=== PATIENT | female | born 1980 | race Caucasian/White ===

== ENCOUNTER 2019-03-13 13:25 | Inpatient (IN) | payer MEDICAID ==
[2019-03-13] MEDS ORDERED: LACTATED RINGER'S 1,000 ML IV (19:44)
[2019-03-13] MEDS ORDERED: CARBOPROST 250 MCG INJ IM (20:00)
[2019-03-13] MEDS ORDERED: OXYTOCIN 30 UNITS/LR 500 ML IV (20:00)
[2019-03-13] MEDS ORDERED: METHYLERGONOVINE 0.2 MG INJ IM (20:00)
[2019-03-13] MEDS ORDERED: MISOPROSTOL 200 MCG TAB PR (20:00)
[2019-03-13 20:29] LABS: ADD MAN DIFF? NO
[2019-03-13 20:34] LABS: WHITE BLOOD COUNT 8.7 10^3/ul (4.8-10.8)
[2019-03-13 20:34] LABS: BASOPHIL # 0.1 10^3/ul (0.0-0.1); BASOPHILS % 0.6 % (0.0-2.0); EOSINOPHILS # 0.1 10^3/ul (0.0-0.5); EOSINOPHILS % 1.1 % (0.0-7.0); HEMATOCRIT 32.2 % (37.0-47.0); HEMOGLOBIN 10.3 g/dl (12.0-16.0); LYMPHOCYTES # 2.1 10^3/ul (0.8-2.9); LYMPHOCYTES % 24.6 % (15.0-51.0); MEAN CORPUSCULAR HEMOGLOBIN 28.1 pg (29.0-33.0); MEAN CORPUSCULAR VOLUME 87.7 fl (82.0-101.0); MEAN PLATELET VOLUME 10.1 fl (7.4-10.4); MONOCYTE # 0.5 10^3/ul (0.3-0.9); MONOCYTES % 6.1 % (0.0-11.0); NEUTROPHIL # 5.8 10^3/ul (1.6-7.5); NEUTROPHILS % 66.8 % (39.0-77.0); PLATELET COUNT 369 10^3/UL (140-415); RED BLOOD COUNT 3.67 10^6/ul (4.20-5.40); RED CELL DISTRIBUTION WIDTH 13.6 % (11.5-14.5)
[2019-03-13 20:55] LABS: INR 0.92; PROTIME 12.5 Sec (11.9-14.9)
[2019-03-13 20:56] LABS: PARTIAL THROMBOPLASTIN TIME 29.7 Sec (23.0-35.0)
[2019-03-13 21:26] LABS: HEPATITIS B SURFACE ANTIGEN NEGATIVE (NEGATIVE)
[2019-03-13] MEDS ORDERED: ROCURONIUM 50 MG INJ (21:44)
[2019-03-13] MEDS ORDERED: DIPHENHYDRAMINE 50 MG INJ (21:49)
[2019-03-13] MEDS ORDERED: ONDANSETRON 4 MG INJ (21:49)
[2019-03-13] MEDS ORDERED: FAMOTIDINE 20 MG INJ (21:49)
[2019-03-13] MEDS ORDERED: DEXAMETHASONE 4 MG/ML 1 ML INJ (21:49)
[2019-03-13] MEDS ORDERED: MIDAZOLAM 1 MG/ML 2 ML INJ (21:51)
[2019-03-13] MEDS ORDERED: morphine SULFATE/PF (10 MG/10 ML) INJ (21:51)
[2019-03-13] MEDS ORDERED: SUGAMMADEX SODIUM 200 MG/2 ML VIAL IV (22:10)
[2019-03-13] MEDS: CEFAZOLIN 2 GM/50 ML (PMX) 50 ML IVPB (22:39)
[2019-03-13] MEDS ORDERED: HYDROmorphONE 0.5 MG/0.5 ML SYG ×2 (22:54)
[2019-03-13] MEDS ORDERED: HYDROmorphONE 0.5 MG/0.5 ML SYG IV ×2 (23:00)
[2019-03-13] MEDS ORDERED: ZOLPIDEM 5 MG TAB PO (23:00)
[2019-03-13] MEDS ORDERED: NALOXONE (0.4 MG/ML) INJ IV (23:00)
[2019-03-13] MEDS ORDERED: ONDANSETRON 4 MG INJ IV (23:00)
[2019-03-13] MEDS: HYDROmorphONE 1 MG/ML SYG IV (23:40)
[2019-03-14] MEDS: OXYTOCIN 30 UNITS/LR 500 ML IV ×2 (00:04→03:57)
[2019-03-14] MEDS: KETOROLAC 30 MG INJ IV ×3 (01:07→19:56)
[2019-03-14] MEDS ORDERED: MISOPROSTOL 200 MCG TAB PR (01:30)
[2019-03-14] MEDS ORDERED: METHYLERGONOVINE 0.2 MG INJ IM (01:30)
[2019-03-14] MEDS ORDERED: NACL 0.9% 3 ML SYG IV (01:30)
[2019-03-14] MEDS ORDERED: OXYTOCIN 30 UNITS/LR 500 ML IV (01:30)
[2019-03-14] MEDS ORDERED: CARBOPROST 250 MCG INJ IM (01:30)
[2019-03-14 01:59] LABS: AMPHETAMINE/METHAMPHETAMINE Negative (NEGATIVE); BARBITURATES Negative (NEGATIVE); CANNABINOIDS Negative (NEGATIVE); COCAINE Negative (NEGATIVE); OPIATES Negative (NEGATIVE)
[2019-03-14 02:06] LABS: BENZODIAZEPINES Positive (NEGATIVE)
[2019-03-14] MEDS: DIPHENHYDRAMINE 50 MG INJ IV ×2 (03:42→14:29)
[2019-03-14 08:40] LABS: ADD MAN DIFF? NO
[2019-03-14 08:44] LABS: WHITE BLOOD COUNT 12.1 10^3/ul (4.8-10.8)
[2019-03-14 08:44] LABS: BASOPHILS % 0.3 % (0.0-2.0); EOSINOPHILS % 0.1 % (0.0-7.0); HEMATOCRIT 32.1 % (37.0-47.0); HEMOGLOBIN 10.4 g/dl (12.0-16.0); LYMPHOCYTES # 1.5 10^3/ul (0.8-2.9); MEAN CORPUSCULAR HEMOGLOBIN 28.7 pg (29.0-33.0); MEAN CORPUSCULAR HGB CONC 32.4 g/dl (32.0-37.0); MEAN CORPUSCULAR VOLUME 88.4 fl (82.0-101.0); MONOCYTE # 0.6 10^3/ul (0.3-0.9); NEUTROPHIL # 9.9 10^3/ul (1.6-7.5); PLATELET COUNT 342 10^3/UL (140-415); RED BLOOD COUNT 3.63 10^6/ul (4.20-5.40); RED CELL DISTRIBUTION WIDTH 13.7 % (11.5-14.5)
[2019-03-14] MEDS: LACTATED RINGER'S 1,000 ML IV ×2 (13:15→21:00)
[2019-03-14 18:24] LABS: RAPID PLASMA REAGIN NONREACTIVE (NR)
[2019-03-14] MEDS: LANOLIN HPA 1 PKT TOP (19:37)
[2019-03-14] MEDS: OXYCODONE/ACETAMINOPHEN (5/325) TAB PO (22:46)
[2019-03-15] MEDS: IBUPROFEN 600 MG TAB PO ×4 (00:13→17:32)
[2019-03-15] MEDS: OXYCODONE/ACETAMINOPHEN (5/325) TAB PO ×3 (08:46→20:10)
[2019-03-15] MEDS: LANOLIN HPA 1 PKT TOP (08:46)
[2019-03-16] MEDS: IBUPROFEN 600 MG TAB PO ×3 (00:10→11:34)
[2019-03-16] MEDS: OXYCODONE/ACETAMINOPHEN (5/325) TAB PO (06:20)
[2019-03-16] MEDS: DIPHTH/TET/ACEL PERTUSS (ADULT) 0.5 ML VIAL IM* (10:04)
== END 2019-03-16 18:23 | disposition home or self-care (01) | DRG 788 ==
LOC: OBT 13:25 → PP1 03-14 01:15 → L-D 13:26 → OBT 17:10 → L-D 17:10
PROVIDERS: Obstetrics & Gynecology
PROC: 10D00Z1 Extraction of Products of Conception, Low, Open Approach (ICD-10-PCS; principal; 2019-03-13 21:00)
PROC: 4A1HXCZ Monitoring of Products of Conception, Cardiac Rate, External Approach (ICD-10-PCS; 2019-03-13 21:00)
DX: O32.1XX0 Maternal care for breech presentation, not applicable or unspecified (principal); Z3A.38 38 weeks gestation of pregnancy; Z37.0 Single live birth
CPT/HCPCS: 76818; 80307; 85025; 85610; 85730; 86592; 86850; 86900; 86901; 87340; 99464